=== PATIENT | female | born 1950 ===

== ENCOUNTER 2020-10-21 16:55 | Emergency (ER) | payer OTHER ==
[~2020-10-21] VITALS: Wt 51.3 kg
[2020-10-21 17:19] LABS: HEMATOCRIT 37.3 % (37.0-47.0); MEAN CELL VOLUME 97.9 fl (81.0-99.0); MEAN CORPUSCULAR HGB 29.7 pg (27.0-31.0); MEAN CORPUSCULAR HGB CONC 30.3 g/dl (33.0-37.0); MEAN PLATELET VOLUME 9.2 fl (9.6-12.3); PLATELET COUNT AUTOMATED 156 10*3/uL (130-400); RED BLOOD COUNT 3.81 10*6/uL (4.10-5.10); RED CELL DISTRI WIDTH 13.6 % (0-14.5)
[2020-10-21 17:35] LABS: ALBUMIN 2.4 gm/dl (3.1-4.5); CREATININE 1.09 mg/dL (0.55-1.02); POTASSIUM 4.2 mmol/L (3.5-5.1); TOTAL PROTEIN 4.9 gm/dL (6.4-8.2)
[2020-10-21 17:36] LABS: ABG BASE EXCESS -9.8 mmol/L (-2.0-2.0); ARTERIAL BLOOD GAS PH 7.207 (7.35-7.45); ARTERIAL BLOOD GAS PO2 442.2 (80-90)
[2020-10-21 17:39] LABS: TROPONIN I 0.168 ng/ml (<0.045)
[2020-10-21 17:41] LABS: TOTAL CELLS COUNTED 100 #CELLS
[2020-10-21 17:42] LABS: PLATELET SUFFICIENCY NORMAL (NORMAL)
[2020-10-21 17:43] LABS: BURR CELLS FEW
[2020-10-21 17:50] LABS: BILIRUBIN Negative (Negative); BLOOD Trace-Intact (Negative); CLARITY Cloudy (Clear); COLOR Yellow (Yellow); GLUCOSE Negative (Negative); KETONE Negative (Negative); LEUKO ESTERASE Negative (Negative); NITRITE Negative (Negative); UROBILINOGEN 0.2 E.U./dl (0.0-1.0)
[2020-10-21 17:59] LABS: BACTERIA TRACE; CALCIUM OXALATE CRYSTALS 4+
== END 2020-10-21 18:40 | disposition short-term general hospital (02) ==
LOC: ED 16:55
PROVIDERS: Emergency Medicine
DX: I46.9 Cardiac arrest, cause unspecified (principal); J93.9 Pneumothorax, unspecified